=== PATIENT | female | born 1960 ===

== ENCOUNTER → 2017-10-24 | Outpatient (CLI) | payer OTHER ==
[2017-10-24 11:13] LABS: PLATELET COUNT, AUTOMATED 256 K/uL (150-450)
--- NOTE | 2017-10-24 11:41 | RADIOLOGY IMAGING REPORT ---
[place] [facility] [place] NAME: Kelin Gaines : 1960 MR: [id number] V: [id number] EXAM DATE: ORDERING PHYSICIAN: IMELDA JEFFERS TECHNOLOGIST: Location: [facility] Patient: Kelin Gaines : 1960 Visit/Account:[id number] Date of Sevice: 10/24/2017 GALLBLADDER HISTORY: Right upper quadrant pain COMPARISON: None. FINDINGS: Gallbladder: Unremarkable; no stones or sludge. Liver: Negative. Common duct: Normal, 3.8 mm diameter. Pancreas: Partially obscured by bowel, visualized aspects unremarkable. Right kidney: Unremarkable as imaged measuring 9 cm in length. The resistive index is 0.53 Upper abdominal aorta and IVC: Patent. Ascites: None visualized. IMPRESSION: Unremarkable right upper quadrant ultrasound Report Dictated By: Day Ivy MD at 10/24/2017 11:35 AM Report E-Signed By: Day Ivy MD at 10/24/2017 11:37 AM WSN:[email or web address]
== END ==
LOC: US 10:10
PROVIDERS: ATTEND Surgery
DX: R10.11 Right upper quadrant pain (principal)
CPT/HCPCS: 36415; 76705; 82040; 82247; 82248; 82310; 82374; 82435; 82565; 82947; 83690; 84075; 84132; 84155; 84295; 84450; 84460; 84520; 85025

== ENCOUNTER → 2018-02-27 | Outpatient (CLI) | payer OTHER | LOC: LAB 08:53 | PROVIDERS: ATTEND Nurse Practitioner Family | DX: N95.1 Menopausal and female climacteric states (principal) | CPT/HCPCS: 36415; 82670; 83001; 84403 ==

== ENCOUNTER → 2018-09-28 | Outpatient (REF) | DX: Z02.9 Encounter for administrative examinations, unspecified (principal) ==

== ENCOUNTER → 2018-09-29 | Outpatient (CLI) | payer OTHER ==
--- NOTE | 2018-09-29 15:51 | RADIOLOGY IMAGING REPORT ---
FACILITY: [facility] [place] PATIENT NAME: JEB SERRATO : [id number] MR: [id number] V: [id number] EXAM DATE: [id number] ORDERING PHYSICIAN: KEN DIAZ TECHNOLOGIST: Ibeth Sood PROCEDURE:BILATERAL DIGITAL SCREENING MAMMOGRAM WITH CAD ASSISTED INTERPRETATION & 3D TOMOSYNTHESIS COMPARISON:Prior mammograms 10/29/14. INDICATIONS:SCREENING FINDINGS: There are bilateral sub-glandular breast implants in place. There is no evidence of implant rupture or leakage. The breast tissue is heterogeneously dense which can obscure small masses. The overall density of the breast tissue is increased when compared to the prior study. The parenchymal pattern otherwise has remained stable. DIAGNOSTIC CATEGORY 2--BENIGN FINDING. RECOMMENDATIONS: ROUTINE MAMMOGRAM AND CLINICAL EVALUATION. IMPRESSION: BIRADS 2: Benign finding. No significant abnormality is seen. Dictated by: Day Ivy M.D. on 09/29/2018 at 14:53 Transcribed by: NASREEN on 09/29/2018 at 15:32 Approved by: Day Ivy M.D. on 09/29/2018 at 15:49 [facility]
== END ==
LOC: MAMO 01:47
PROVIDERS: ATTEND Nurse Practitioner Family
DX: Z12.31 Encounter for screening mammogram for malignant neoplasm of breast (principal); Z98.82 Breast implant status
CPT/HCPCS: 77063; 77067

== ENCOUNTER → 2018-11-07 | Outpatient (CLI) | payer OTHER ==
--- NOTE | 2018-11-07 16:39 | RADIOLOGY IMAGING REPORT ---
FACILITY: [facility] PATIENT NAME: Kelin Gaines : 1960 MR: [id number] V: [id number] EXAM DATE: ORDERING PHYSICIAN: KEN DIAZ TECHNOLOGIST: Location: [facility] [place] Patient: Kelin Gaines : 1960 Visit/Account:[id number] Date of Sevice: 11/07/2018 DEXA Scan Clinical history: Postmenopausal screening. Comparison: None available. LUMBAR SPINE: The bone mineral density (BMD) measured from L1-L4 correlates with a Z-score 0.6 and a T-score of -0. 6 which is Normal as defined by the World Health Organization. The corresponding risk of fracture in the lumbar spine is 1-2 times increased compared with a young adult reference population. HIP: Bone mineral density (BMD) measured in the Left total hip region correlates with a Z-score 0.5 and a T-score of -0.5 which is Normal as defined by the World Health Organization. The corresponding risk of fracture in the hip is 1-2 times increased compared with a young adult reference population. T s core left femoral neck -1.2 Bone mineral density (BMD) measured in the Femoral Neck region measures 0.877 g/cm2. Impression: 1. Lumbar spine: Normal. 2. Left Hip: Normal. 3. Femoral Neck: Bone Mineral Density is 0.877 g/cm2 The next DEXA scan of this patient should include the following sites: L1-L4 and the left hip. FRAX? WHO Fracture Risk Assessment Tool link: <http://www.shef.ac.uk/FRAX/tool.jsp?locationValue=9> PLEASE NOTE: 1) The World Health Organization defines low BMD as follows: T-score Normal > -1 Osteopenia < -1 and > -2.5 Osteoporosis < -2.5 without fractures Established osteoporosis < -2.5 with fractures 2) In general, you may wish to consider: Diagnosis Treatment Follow-up DEXA Normal BMD Prevention 2-3 years Osteopenia Prevention/therapy 1-2 years Osteoporosis Therapy Yearly 3) Fracture risk estimated from the T-score is more accurate for vertebral fractures (often spontane ous) than for hip fractures. Report Dictated By: Day Ivy MD at 11/07/2018 4:32 PM Report E-Signed By: Day Ivy MD at 11/07/2018 4:34 PM WSN:[email or web address]
== END ==
LOC: RAD 01:47
PROVIDERS: ATTEND Nurse Practitioner Family
DX: Z78.0 Asymptomatic menopausal state (principal)
CPT/HCPCS: 77080

== ENCOUNTER 2018-11-17 00:45 | Day surgery (SDC) | payer OTHER ==
[~2018-11-17] VITALS: Ht 154.9 cm; Wt 59.9 kg
[2018-11-17] VITALS (7 sets, daily range): BP systolic 91–134; BP diastolic 50–73
[~2018-11-17 00:45] MED LIST: ESTROGEN PELLET IL; SPIR25TA80 PO; TEST75PE4 IL
[2018-11-17] MEDS ORDERED: NORMOSOL R SOLN(*) 1000 ML BAG 1,000 ML IV PRN (06:30)
[2018-11-17] MEDS ORDERED: LIDOCAINE/SOD BICARB 8.4% SYR ID ONE (06:30)
--- NOTE | 2018-11-17 07:52 | NUR ---
0752- PT BROUGHT TO STEP DOWN BAY 1, PT IN LL POSITION, UNRESPONSIVE AT THIS TIME, OXY MASK IN PLACE AT 6LPM, PT MAINTAINING SATS, RESP, AIRWAY, WILL CONTINUE TO MONITOR, SBAR REPORT FROM DR. SINGER AND Shubham HICKS RN 7947- DECREASED O2 TO 3LPM VIA OXY MASK 0800- VSS, PT REMAINS SLEEPING IN LL POSITION, CALL LIGHT WITHIN REACH
--- NOTE | 2018-11-17 08:00 | Short(Outpt) Discharge Summary ---
Discharge Summary Reason for Hosp/Final Diag: (1) Encounter for screening colonoscopy Hospital Course & Plan: pt presented for colonoscopy. she tolerated the procedure well. she will be discharged home when criteria met. Departure Discharge to: Home Discharge Instructions Home Meds Reported Medications Spironolactone (SPIRONOLACTONE) 25 Mg Tablet, 50 MG PO DAILY PRN for FLUID RETENTION, TAB 11/10/18 [Estrogen Pellet] No Conflict Check, 15 MG IL Q3MON 11/10/18 Testosterone (TESTOPEL) 75 Mg Pellet.ea., 50 MG IL Q3MON 11/10/18 Diet: Regular Activity: As Tolerated Special Instructions: no driving for 24 hrs. repeat colonoscopy in 10 yrs. MOMO PONCE Nov 17, 2018 08:00
--- NOTE | 2018-11-17 08:03 | NUR ---
0803- PT AWAKE, DROWSY, PT PLACED ON RA,
--- NOTE | 2018-11-17 08:17 | NUR ---
0817- PT REPOSITIONED ON BACK, IN SF POSITION, PT A/O X 3
--- NOTE | 2018-11-17 08:21 | NUR ---
0821- PT TOLERATING DIET LILY LOPEZ
--- NOTE | 2018-11-17 08:33 | NUR ---
0833- DR PONCE AT BEDSIDE
--- NOTE | 2018-11-17 08:34 | NUR ---
0834- SL IV 0835- ORTHO VSS 0838- PT DRESSED 0842- PT AMBULATORY TO RESTROOM, PT REPORTS VOID X 1 0844- D/C IV WITH CATH INTACT
--- NOTE | 2018-11-17 08:49 | NUR ---
0849- REVIEWED D/C INSTRUCTIONS
--- NOTE | 2018-11-17 08:53 | NUR ---
0853- PT AMBULATORY TO JEY ACCOMPANIED BY CORINNE
[2018-11-17] MEDS ORDERED: PROPOFOL EMUL(*) 10MG/ML 20 ML 60 ML ONE (11:17)
== END 2018-11-17 08:53 | disposition home or self-care (01) ==
LOC: OR 00:45
PROVIDERS: ATTEND Surgery
DX: Z12.11 Encounter for screening for malignant neoplasm of colon (principal); K57.30 Diverticulosis of large intestine without perforation or abscess without bleeding
CPT/HCPCS: 00812; 45378; J2704

== ENCOUNTER → 2019-03-01 | Outpatient (CLI) | payer OTHER | LOC: LAB 08:17 | PROVIDERS: ATTEND Nurse Practitioner Family | DX: N95.1 Menopausal and female climacteric states (principal); E89.41 Symptomatic postprocedural ovarian failure | CPT/HCPCS: 36415; 82670; 83001; 84403 ==